=== PATIENT | female | born 1995 | race Caucasian/White ===

== ENCOUNTER 2016-06-28 14:13 | Observation (INO) | payer OTHER ==
[~2016-06-28 14:13] MED LIST: ATIVAN0.5 M1 PO; CIPRO500 M2 PO; LATUDA20 M1 PO; VIIBRYD40 M1 PO
[2016-06-28 16:08] LABS: URINE BILIRUBIN NEGATIVE (NEG); URINE BLOOD NEGATIVE (NEG); URINE GLUCOSE (UA) SMALL (NEG); URINE KETONE NEGATIVE (NEG); URINE LEUKOCYTE ESTERASE POSITIVE (NEG); URINE NITRITE NEGATIVE (NEG); URINE PROTEIN NEGATIVE (NEG)
[2016-06-28 16:12] LABS: URINE APPEARANCE HAZY; URINE COLOR YELLOW
[2016-06-28] MEDS ORDERED: PRENATAL VITAM1 EAC5 PO (16:12)
[2016-06-28] MEDS ORDERED: PRILOSEC OTC20 M1 PO (16:12)
[2016-06-28 16:22] LABS: URINE BACTERIA 2+; URINE RBC 0 /[HPF] (0-5)
== END 2016-06-28 17:00 ==
LOC: LDR 14:13
PROVIDERS: ADMIT Obstetrics & Gynecology
DX: O46.93 Antepartum hemorrhage, unspecified, third trimester (principal); Z3A.33 33 weeks gestation of pregnancy; Z79.899 Other long term (current) drug therapy

== ENCOUNTER 2016-07-25 11:23 | Observation (INO) | payer OTHER ==
[~2016-07-25 11:23] MED LIST changes: +PRENATAL VITAM1 EAC5 PO; +PRILOSEC OTC20 M1 PO
== END 2016-07-25 12:48 ==
LOC: LDR 11:23
PROVIDERS: ADMIT Obstetrics & Gynecology
DX: Z03.71 Encounter for suspected problem with amniotic cavity and membrane ruled out (principal); Z3A.37 37 weeks gestation of pregnancy

== ENCOUNTER 2016-08-10 08:44 | Inpatient (IN) | payer OTHER ==
[2016-08-10 11:31] LABS: BASO % 0.2 % (0-2); EOS % 0.3 % (0-7); HCT-HEMATOCRIT 29.1 % (34.0-49.0); HGB-HEMOGLOBIN 9.8 gm/dl (12.0-15.5); IMMATURE GRANULOCYTES ABSOLUTE 0.07 tho/cmm (0-0.03); IMMATURE GRANULOCYTES PERCENT 0.6 % (0-0.3); LYMPH % 10.1 % (20-45); LYMPH ABSOLUTE COUNT 1.2 tho/cmm (0.8-4.5); MCH (MEAN CORPUSCULAR HGB) 27.1 pg (28.0-32.0); MCHC MEAN CORPUSCULAR HGB CONC 33.7 % (32.0-36.0); MCV (MEAN CELL VOLUME) 80.4 fl (82.0-96.0); MEAN PLATELET VOLUME 9.3 cmc (9.4-12.4); MONO % 7.6 % (0-12); MONOCYTE ABSOLUTE COUNT 0.9 tho/cmm (0.0-1.2); NEUTROPHIL ABSOLUTE COUNT 9.3 tho/cmm (1.6-8.0); NEUTROPHIL-AUTOMATED 9.3 tho/cmm (1.6-8.0); NEUTROPHILS % 81.2 % (40-80); PLATELET COUNT 236 tho/cmm (150-450); RED BLOOD COUNT 3.62 mil/cmm (4.00-5.20); WHITE BLOOD COUNT 11.4 tho/cmm (4.0-10.0)
[2016-08-11 07:28] LABS: BASO % 0.1 % (0-2); EOS % 0.2 % (0-7); HGB-HEMOGLOBIN 8.4 gm/dl (12.0-15.5); IMMATURE GRANULOCYTES ABSOLUTE 0.06 tho/cmm (0-0.03); IMMATURE GRANULOCYTES PERCENT 0.5 % (0-0.3); LYMPH % 14.1 % (20-45); LYMPH ABSOLUTE COUNT 1.7 tho/cmm (0.8-4.5); MCH (MEAN CORPUSCULAR HGB) 27.2 pg (28.0-32.0); MCHC MEAN CORPUSCULAR HGB CONC 33.6 % (32.0-36.0); MCV (MEAN CELL VOLUME) 80.9 fl (82.0-96.0); MONO % 9.2 % (0-12); MONOCYTE ABSOLUTE COUNT 1.1 tho/cmm (0.0-1.2); NEUTROPHILS % 75.9 % (40-80); PLATELET COUNT 226 tho/cmm (150-450); RED BLOOD COUNT 3.09 mil/cmm (4.00-5.20); RED CELL DISTRIBUTION WIDTH 13.5 % (12.4-16.4); WHITE BLOOD COUNT 11.8 tho/cmm (4.0-10.0)
[2016-08-12] MEDS ORDERED: IBUPROFEN600 M1 PO (11:34)
[2016-08-12] MEDS ORDERED: FERROUS SULFAT324 MG PO (11:36)
[2016-08-12] MEDS ORDERED: COLACE100 M1 PO (11:36)
== END 2016-08-12 15:10 | DRG 775 ==
LOC: LDR 08:44 → OBGF 20:50
PROVIDERS: Anesthesiology; ADMIT Obstetrics & Gynecology
PROC: 10E0XZZ Delivery of Products of Conception, External Approach (ICD-10-PCS; principal; 2016-08-10)
PROC: 0KQM0ZZ Repair Perineum Muscle, Open Approach (ICD-10-PCS; 2016-08-10)
PROC: 10907ZC Drainage of Amniotic Fluid, Therapeutic from Products of Conception, Via Natural or Artificial Opening (ICD-10-PCS; 2016-08-10)
PROC: 4A1HXCZ Monitoring of Products of Conception, Cardiac Rate, External Approach (ICD-10-PCS; 2016-08-10)
DX: O70.1 Second degree perineal laceration during delivery (principal); O99.02 Anemia complicating childbirth; Z3A.39 39 weeks gestation of pregnancy; Z37.0 Single live birth; Z79.899 Other long term (current) drug therapy
CPT/HCPCS: J2590